=== PATIENT | female | born 1945 | race Caucasian/White ===

== ENCOUNTER 2017-03-25 13:17 | Outpatient (CLI) | payer MEDICARE, BC ==
[2016-02-23 14:42] VITALS: O2SAT 98
== END 2017-03-25 13:18 | disposition home or self-care (01) | DRG 561 ==
LOC: CONVCARE 13:17
PROVIDERS: ATTEND Orthopaedic Surgery
DX: Z47.1 Aftercare following joint replacement surgery (principal); M25.561 Pain in right knee; Z96.641 Presence of right artificial hip joint; Z96.651 Presence of right artificial knee joint
CPT/HCPCS: 73502; 73562

== ENCOUNTER 2017-04-15 15:14 | Outpatient (CLI) | payer MEDICARE, BC ==
[2016-02-23 14:42] VITALS: O2SAT 98
== END 2017-04-15 15:15 | disposition home or self-care (01) | DRG 552 ==
LOC: CONVCARE 15:14
PROVIDERS: ATTEND Orthopaedic Surgery
DX: M54.9 Dorsalgia, unspecified (principal)
CPT/HCPCS: 72120

== ENCOUNTER 2018-10-18 11:41 | Day surgery (SDC) | payer MEDICARE, BC ==
[2018-10-18] MEDS: CYCLOPENTOLATE 1% SOL ONE ×3 (12:00→12:09)
[2018-10-18] MEDS: PHENYLEPHRINE HCL 10% OPHTHAL SOL ONE ×3 (12:00→12:08)
[2018-10-18] MEDS: TROPICAMIDE 1% OPHTH SOL ONE ×3 (12:01→12:09)
[2018-10-18] MEDS ORDERED: KETOROLAC/HOME 0.5% SOL RIGHTEYE ONE ×3 (12:01→12:10)
[2018-10-18] MEDS ORDERED: MOXIFLOXACIN-HOME SOL RIGHTEYE ONE ×2 (12:01→12:05)
[2018-10-18] MEDS ORDERED: MIDAZOLAM 2 MG/2 ML SOL ONE (12:09)
[2018-10-18] MEDS: TETRACAINE HCL 0.5 % 1 DROP SOL ONE ×2 (12:11→13:27)
[2018-10-18] MEDS ORDERED: LIDOCAINE HCL 2% MPF 10 ML SOL ONE (13:16)
[2018-10-18] MEDS ORDERED: POVIDONE IODINE 5% SOL ONE (13:16)
[2018-10-18] MEDS ORDERED: ACETAZOLAMIDE 250 MG PO ONE (13:26)
[2018-10-18] MEDS: BSS W/ 0.5 MG P.F. EPI 1 BOTTLE ONE ×2 (13:30→13:34)
[2018-10-18 13:56] VITALS: RESP 18; TEMP 97.4
[2018-10-18] MEDS ORDERED: ACETAZOLAMIDE 500 MG CER PO ONE (14:09)
[2018-10-18 14:32] VITALS: BP 130/83; PULSE 83; O2SAT 99
== END 2018-10-18 14:34 | disposition home or self-care (01) | DRG 125 ==
LOC: SURG 11:41
PROVIDERS: ATTEND Ophthalmology
DX: H25.89 Other age-related cataract (principal)
CPT/HCPCS: 93005; J2250; A9270-GY

== ENCOUNTER 2018-11-08 12:12 | Day surgery (SDC) | payer MEDICARE, BC ==
[~2018-11-08 12:12] MED LIST: MIDAZOLAM 2 MG/2 ML SOL ONE
[2018-11-08 12:41] VITALS: PULSE 79
[2018-11-08] MEDS: PHENYLEPHRINE HCL 10% OPHTHAL SOL ONE ×3 (12:44→12:52)
[2018-11-08] MEDS ORDERED: MOXIFLOXACIN-HOME SOL LEFTEYE ONE ×2 (12:45→12:49)
[2018-11-08] MEDS ORDERED: KETOROLAC/HOME 0.5% SOL LEFTEYE ONE ×3 (12:45→12:52)
[2018-11-08] MEDS: TROPICAMIDE 1% OPHTH SOL ONE ×3 (12:45→12:52)
[2018-11-08] MEDS: CYCLOPENTOLATE 1% SOL ONE ×3 (12:45→12:52)
[2018-11-08] MEDS: TETRACAINE HCL 0.5 % 1 DROP SOL ONE ×2 (12:53→13:49)
[2018-11-08] MEDS: BSS W/ 0.5 MG P.F. EPI 1 BOTTLE ONE ×2 (13:48→13:56)
[2018-11-08] MEDS: POVIDONE IODINE 5% SOL ONE ×2 (13:49→13:51)
[2018-11-08] MEDS: LIDOCAINE HCL 2% MPF 10 ML SOL ONE ×2 (13:49→13:56)
[2018-11-08] MEDS ORDERED: ACETAZOLAMIDE 250 MG PO ONE (14:13)
[2018-11-08 14:19] VITALS: BP 136/83; RESP 20; TEMP 97.5; O2SAT 100
== END 2018-11-08 14:30 | disposition home or self-care (01) | DRG 125 ==
LOC: SURG 12:12
PROVIDERS: ATTEND Ophthalmology
DX: H25.89 Other age-related cataract (principal)
CPT/HCPCS: J2250; A9270-GY